=== PATIENT | female | born 1975 | race Caucasian/White ===

== ENCOUNTER 2018-08-08 08:46 | Inpatient (IN) | payer BC, MEDICAID, OTHER ==
[~2018-08-08] VITALS: Ht 152.4 cm; Wt 59.6 kg
[~2018-08-08 08:46] MED LIST: ARIP5TAB8 PO; SERT50TA12 PO
[2018-08-08] MEDS ORDERED: TEMA15CA PO (09:10)
[2018-08-08 09:25] LABS: EOSINOPHILS % (AUTO) 3.2 % (1.0-6.0); HEMATOCRIT 39.9 % (36-46); LYMPHOCYTES # (AUTO) 1.8 K/uL (1.0-4.8); LYMPHOCYTES % (AUTO) 27.4 % (22.0-44.0); MEAN CORPUSCULAR HGB CONC 32.4 G/dL (31.0-37.0); MEAN CORPUSCULAR VOLUME 86 fL (80-100); MONOCYTES # (AUTO) 0.7 K/uL (0.1-1.0); MONOCYTES % (AUTO) 10.8 % (2.0-9.0); NEUTROPHILS # (AUTO) 3.8 K/uL (1.8-7.7); NEUTROPHILS % (AUTO) 57.6 % (40.0-70.0); PLATELET COUNT (AUTO) 254 K/uL (150-450); RED BLOOD CELL COUNT(AUTO) 4.63 MIL/uL (4.00-5.20); RED CELL DISTRIBUTION WIDTH 14.3 % (11.5-14.5)
[2018-08-08 09:26] LABS: AMPHET/METH SCREEN,URINE NEGATIVE (NEGATIVE); BARBITURATE SCREEN, URINE NEGATIVE (NEGATIVE); BENZODIAZEPINES SCREEN,URINE NEGATIVE (NEGATIVE); CANNABINOID SCREEN,URINE NEGATIVE (NEGATIVE); COCAINE SCREEN,URINE NEGATIVE (NEGATIVE); METHADONE SCREEN, URINE NEGATIVE (NEGATIVE); OPIATE SCREEN,URINE NEGATIVE (NEGATIVE)
[2018-08-08 09:27] LABS: PHENCYCLIDINE SCREEN,URINE NEGATIVE (NEGATIVE)
[2018-08-08 09:34] LABS: ANION GAP 6 mmol/L (8-16); CARBON DIOXIDE 27 mmol/L (22-29); CHLORIDE 103 mmol/L (98-107); CREATININE 0.86 mg/dL (0.60-1.30); GLOMERULAR FILTR. RATE CALC > 60 mL/min (>60); GLUCOSE,RANDOM 96 mg/dL (70-110); POTASSIUM 3.8 mmol/L (3.5-5.1); SODIUM SERUM 136 mmol/L (136-145); UREA NITROGEN, BLOOD 7 mg/dL (7-18)
[2018-08-08 09:40] LABS: ALANINE AMINOTRANSFERASE 44 U/L (12-78); ALBUMIN 3.6 g/dL (3.4-5.0); ALKALINE PHOSPHATASE 82 U/L (46-116); ASPARTATE AMINOTRANSFERASE 35 U/L (15-37); BILIRUBIN,TOTAL 0.2 mg/dL (0.1-1.0); TOTAL PROTEIN, SERUM 7.3 g/dL (6.4-8.2)
[2018-08-08] MEDS ORDERED: LORazepam 2 MG TABLET PO ONE (10:30)
[2018-08-08] MEDS ORDERED: HALOPERIDOL 5 MG TABLET PO ONE (10:30)
[2018-08-08] MEDS ORDERED: HALOPERIDOL 5 MG TABLET PO PRN (11:45)
[2018-08-08] MEDS ORDERED: ZOLPIDEM TARTRATE 10 MG TABLET PO PRN (11:45)
[2018-08-08] MEDS ORDERED: LOPERAMIDE HCL 2 MG CAPSULE PO PRN (15:30)
[2018-08-08] MEDS ORDERED: MAGNESIUM HYDROXIDE SUSPENSION 30 ML UDCUP PO PRN (15:30)
[2018-08-08] MEDS ORDERED: ALBUTEROL SULFATE HFA 90 MCG/PUFF 8 GM INHALER IH PRN (15:30)
[2018-08-08] MEDS ORDERED: IBUPROFEN 400 MG TABLET PO PRN (15:30)
[2018-08-08] MEDS ORDERED: MAG HYDROX/AL HYDROX/SIMETH ES 30 ML SUSPENSION UDCUP PO PRN (15:30)
[2018-08-08] MEDS ORDERED: NICOTINE 14 MG/24 HOUR PATCH TD PRN (15:30)
[2018-08-08] MEDS ORDERED: ACETAMINOPHEN 325 MG TABLET PO PRN (15:30)
[2018-08-08] MEDS ORDERED: PETROLATUM,WHITE 28 GM JELLY TP PRN (15:30)
[2018-08-08] MEDS ORDERED: ONDANSETRON HCL 4 MG TABLET PO PRN (15:30)
[2018-08-08] MEDS ORDERED: DOCUSATE SODIUM 100 MG CAPSULE PO PRN (15:30)
[2018-08-08] MEDS ORDERED: GuaiFENesin/D-METHORPHAN [SUGAR-FREE] 200-20MG/10 ML SYRUP UDCUP PO PRN (15:30)
[2018-08-08] MEDS ORDERED: CloNIDine HCL 0.1 MG TABLET PO PRN (15:30)
[2018-08-08 16:26] VITALS: BP 123/70
[2018-08-09 00:22] VITALS: BP 109/68
[2018-08-09] MEDS: LORazepam 2 MG TABLET PO PRN ×3 (00:27→16:06)
[2018-08-09 08:07] LABS: BASOPHILS % (AUTO) 0.8 % (0.0-2.0); EOSINOPHILS % (AUTO) 2.2 % (1.0-6.0); HEMATOCRIT 42.9 % (36-46); LYMPHOCYTES # (AUTO) 2.2 K/uL (1.0-4.8); LYMPHOCYTES % (AUTO) 31.2 % (22.0-44.0); MEAN CORPUSCULAR HEMOGLOBIN 28.2 pg (26.0-34.0); MEAN CORPUSCULAR HGB CONC 32.7 G/dL (31.0-37.0); MEAN CORPUSCULAR VOLUME 86 fL (80-100); MONOCYTES # (AUTO) 0.6 K/uL (0.1-1.0); NEUTROPHILS % (AUTO) 57.8 % (40.0-70.0); PLATELET COUNT (AUTO) 264 K/uL (150-450); RED BLOOD CELL COUNT(AUTO) 4.97 MIL/uL (4.00-5.20); RED CELL DISTRIBUTION WIDTH 14.8 % (11.5-14.5)
[2018-08-09 08:15] VITALS: BP 129/74
[2018-08-09 08:34] LABS: ALANINE AMINOTRANSFERASE 36 U/L (12-78); ALBUMIN 3.3 g/dL (3.4-5.0); ALKALINE PHOSPHATASE 76 U/L (46-116); ANION GAP 9 mmol/L (8-16); ASPARTATE AMINOTRANSFERASE 30 U/L (15-37); BILIRUBIN,TOTAL 0.3 mg/dL (0.1-1.0); CALCIUM, TOTAL 9.1 mg/dL (8.8-10.5); CARBON DIOXIDE 26 mmol/L (22-29); CHLORIDE 105 mmol/L (98-107); CHOL/HDL RATIO 2.4 (3.9-5.7); CHOLESTEROL 196 mg/dL (131-200); CREATININE 0.72 mg/dL (0.60-1.30); GLOMERULAR FILTR. RATE CALC > 60 mL/min (>60); GLUCOSE,RANDOM 89 mg/dL (70-110); HDL CHOLESTEROL 82 mg/dL (40-60); LDL CHOL (CALC.) 97 mg/dL (0-130); POTASSIUM 4.2 mmol/L (3.5-5.1); SODIUM SERUM 140 mmol/L (136-145); TOTAL PROTEIN, SERUM 7.2 g/dL (6.4-8.2); TRIGLYCERIDES 84 mg/dL (15-150); UREA NITROGEN, BLOOD 7 mg/dL (7-18)
[2018-08-09] MEDS: OLANZapine 5 MG RAPDIS TABLET PO SCH ×2 (09:30→16:06)
[2018-08-09] MEDS: SERTRALINE HCL 100 MG TABLET PO SCH (09:53)
[2018-08-09 16:06] VITALS: BP 132/62
[2018-08-09] MEDS: ARIPiprazole 10 MG TABLET PO SCH (20:25)
[2018-08-10 00:04] VITALS: BP 119/67
[2018-08-10] MEDS: LORazepam 2 MG TABLET PO PRN ×4 (00:07→21:21)
[2018-08-10] MEDS: SERTRALINE HCL 100 MG TABLET PO SCH (08:08)
[2018-08-10] MEDS: OLANZapine 5 MG RAPDIS TABLET PO SCH ×2 (08:08→16:39)
[2018-08-10 08:18] LABS: APPEARANCE,URINE TURBID (CLEAR); BILIRUBIN,URINE NEGATIVE (NEGATIVE); GLUCOSE, URINE (UA) NEGATIVE (NEGATIVE); KETONES,URINE NEGATIVE (NEGATIVE); LEUKOCYTE ESTERASE ,URINE NEGATIVE (NEGATIVE); NITRATE,URINE NEGATIVE (NEGATIVE); OCCULT BLOOD,URINE NEGATIVE (NEGATIVE); PROTEIN,URINE NEGATIVE (NEGATIVE); UROBILINOGEN,URINE 0.2 mg/dL (<=1.0)
[2018-08-10 08:21] LABS: AMPHET/METH SCREEN,URINE NEGATIVE (NEGATIVE); BARBITURATE SCREEN, URINE NEGATIVE (NEGATIVE); BENZODIAZEPINES SCREEN,URINE NEGATIVE (NEGATIVE); CANNABINOID SCREEN,URINE NEGATIVE (NEGATIVE); COCAINE SCREEN,URINE NEGATIVE (NEGATIVE); METHADONE SCREEN, URINE NEGATIVE (NEGATIVE); OPIATE SCREEN,URINE NEGATIVE (NEGATIVE)
[2018-08-10 08:23] LABS: PHENCYCLIDINE SCREEN,URINE NEGATIVE (NEGATIVE)
[2018-08-10 08:32] VITALS: BP 128/61
[2018-08-10] MEDS ORDERED: SERT100T12 PO (12:09)
[2018-08-10] MEDS ORDERED: LORATADINE 10 MG TABLET PO PRN (12:15)
[2018-08-10 16:32] VITALS: BP 117/71
[2018-08-10] MEDS: ARIPiprazole 10 MG TABLET PO SCH (20:03)
[2018-08-11 01:13] VITALS: BP 111/75
[2018-08-11 08:22] VITALS: BP 117/78
[2018-08-11] MEDS: SERTRALINE HCL 100 MG TABLET PO SCH (09:06)
[2018-08-11] MEDS: OLANZapine 5 MG RAPDIS TABLET PO SCH ×2 (09:06→16:04)
[2018-08-11] MEDS: LORazepam 2 MG TABLET PO PRN ×3 (09:10→20:06)
[2018-08-11 16:11] VITALS: BP 117/67
[2018-08-11] MEDS: ARIPiprazole 10 MG TABLET PO SCH (20:06)
[2018-08-12] MEDS: LORazepam 2 MG TABLET PO PRN ×2 (00:09→09:10)
[2018-08-12 00:12] VITALS: BP 108/72
[2018-08-12] MEDS: SERTRALINE HCL 100 MG TABLET PO SCH (08:08)
[2018-08-12] MEDS: OLANZapine 5 MG RAPDIS TABLET PO SCH (08:08)
[2018-08-12 08:33] VITALS: BP 117/75
[2018-08-12] MEDS ORDERED: OLAN5TAB40 PO (09:40)
== END 2018-08-12 10:30 | disposition home or self-care (01) | DRG 750 ==
LOC: EMS 08:55 → B2S 13:48
PROVIDERS: ATTEND Psychiatry & Neurology Child & Adolescent Psychiatry
DX: F25.9 Schizoaffective disorder, unspecified (principal); R45.851 Suicidal ideations; E88.09 Other disorders of plasma-protein metabolism, not elsewhere classified; G44.209 Tension-type headache, unspecified, not intractable; F41.9 Anxiety disorder, unspecified
CPT/HCPCS: 80307; 83036; 84443; G0480

== ENCOUNTER 2019-01-26 16:43 | Emergency (ER) | payer MEDICAID ==
[~2019-01-26] VITALS: Ht 152.4 cm; Wt 70.5 kg
[~2019-01-26 16:43] MED LIST changes: +OLAN5TAB40 PO; +SERT100T12 PO; -SERT50TA12 PO
[2019-01-26] MEDS ORDERED: ARIP10TA8 PO (18:49)
[2019-01-26 18:59] LABS: HEMOGLOBIN 13.3 g/dL (12.0-16.0)
[2019-01-26 19:00] LABS: HEMATOCRIT 40.2 % (36-46); LYMPHOCYTES % (AUTO) 22.9 % (22.0-44.0); MEAN CORPUSCULAR HEMOGLOBIN 27.8 pg (26.0-34.0); MEAN CORPUSCULAR HGB CONC 33.1 G/dL (31.0-37.0); MEAN CORPUSCULAR VOLUME 84 fL (80-100); MONOCYTES # (AUTO) 0.6 K/uL (0.1-1.0); MONOCYTES % (AUTO) 6.5 % (2.0-9.0); NEUTROPHILS % (AUTO) 68.6 % (40.0-70.0); PLATELET COUNT (AUTO) 255 K/uL (150-450); RED CELL DISTRIBUTION WIDTH 14.8 % (11.5-14.5)
[2019-01-26] MEDS ORDERED: HydrOXYzine PAMOATE 50 MG CAPSULE PO ONE (19:00)
[2019-01-26 19:45] LABS: ANION GAP 9 mmol/L (8-16); CALCIUM, TOTAL 8.7 mg/dL (8.8-10.5); CARBON DIOXIDE 27 mmol/L (22-29); CHLORIDE 102 mmol/L (98-107); CREATININE 0.83 mg/dL (0.60-1.30); GLOMERULAR FILTR. RATE CALC > 60 mL/min (>60); GLUCOSE,RANDOM 100 mg/dL (70-110); POTASSIUM 3.6 mmol/L (3.5-5.1); SODIUM SERUM 138 mmol/L (136-145); UREA NITROGEN, BLOOD 5 mg/dL (7-18)
[2019-01-26 19:52] LABS: ALANINE AMINOTRANSFERASE 25 U/L (12-78); ALKALINE PHOSPHATASE 69 U/L (46-116); ASPARTATE AMINOTRANSFERASE 22 U/L (15-37); BILIRUBIN,TOTAL 0.2 mg/dL (0.1-1.0); HCG,QUANTITATIVE < 1 mIU/mL (0-6); THYROID STIMULATING HORMONE 1.39 uIU/mL (0.36-3.74); TOTAL PROTEIN, SERUM 7.6 g/dL (6.4-8.2)
[2019-01-26 20:15] VITALS: BP 112/76
== END 2019-01-26 20:40 | disposition home or self-care (01) ==
LOC: EMS 16:43
DX: F41.9 Anxiety disorder, unspecified (principal); F32.9 Major depressive disorder, single episode, unspecified; F17.210 Nicotine dependence, cigarettes, uncomplicated
CPT/HCPCS: 36415; 80053; 84443; 84702; 85025; 93005; 99284; G0480

== ENCOUNTER 2019-04-10 04:58 | Emergency (ER) | payer MEDICAID ==
[~2019-04-10] VITALS: Ht 154.9 cm; Wt 70.0 kg
[~2019-04-10 04:58] MED LIST changes: +ARIP10TA8 PO; -ARIP5TAB8 PO
[2019-04-10] MEDS ORDERED: TEMA15CA PO (05:15)
[2019-04-10 05:58] VITALS: BP 119/76
== END 2019-04-10 06:36 | disposition home or self-care (01) ==
LOC: EMS 04:58
DX: J30.9 Allergic rhinitis, unspecified (principal); F41.9 Anxiety disorder, unspecified; F32.9 Major depressive disorder, single episode, unspecified; F17.210 Nicotine dependence, cigarettes, uncomplicated

== ENCOUNTER 2019-04-17 04:34 | Emergency (ER) | payer MEDICAID ==
[~2019-04-17] VITALS: Ht 154.9 cm; Wt 68.2 kg
[~2019-04-17 04:34] MED LIST changes: +TEMA15CA PO
[2019-04-17 04:57] VITALS: BP 111/88
== END 2019-04-17 06:13 | disposition left against medical advice (07) ==
LOC: EMS 04:34
DX: T78.40XA Allergy, unspecified, initial encounter (principal); Z53.21 Procedure and treatment not carried out due to patient leaving prior to being seen by health care provider; X58.XXXA Exposure to other specified factors, initial encounter

== ENCOUNTER 2020-12-30 10:51 | Emergency (ER) | payer MEDICAID ==
[~2020-12-30] VITALS: Ht 152.4 cm; Wt 76.4 kg
[~2020-12-30 10:51] MED LIST changes: +ARIP10TA38 PO; -ARIP10TA8 PO; -OLAN5TAB40 PO; +OLAN5TAB94 PO; +SERT-162 PO; -SERT100T12 PO
[2020-12-30 11:00] VITALS: BP 122/33
[2020-12-30] MEDS ORDERED: GABAPENTIN 100 MG CAPSULE PO ONE (11:45)
[2020-12-30] MEDS ORDERED: METHOCARBAMOL 500 MG TABLET PO ONE (11:45)
[2020-12-30] MEDS ORDERED: KETOROLAC TROMETHAMINE 10 MG TABLET PO ONE (11:45)
== END 2020-12-30 12:21 | disposition home or self-care (01) ==
LOC: EMS 10:51
DX: M54.6 Pain in thoracic spine (principal)
CPT/HCPCS: 99284; Z7502; Z7610

== ENCOUNTER 2021-01-24 20:35 | Emergency (ER) | payer MEDICAID ==
[~2021-01-24] VITALS: Ht 152.4 cm; Wt 77.3 kg
[2021-01-24 20:45] VITALS: BP 133/78
[2021-01-24] MEDS ORDERED: LIDOCAINE 5% TRANSDERMAL PATCH TD ONE (21:00)
[2021-01-24] MEDS ORDERED: KETOROLAC TROMETHAMINE 30 MG/ML VIAL IM ONE (21:00)
[2021-01-24] MEDS ORDERED: CYCLOBENZAPRINE HCL 10 MG TABLET PO ONE (21:00)
[2021-01-24] MEDS ORDERED: SERT-162 PO (22:14)
[2021-01-24] MEDS ORDERED: DIVA125T32 PO (22:14)
== END 2021-01-24 21:48 | disposition home or self-care (01) ==
LOC: EMS 20:49
DX: M54.6 Pain in thoracic spine (principal); F32.9 Major depressive disorder, single episode, unspecified; F41.9 Anxiety disorder, unspecified; Z79.899 Other long term (current) drug therapy
CPT/HCPCS: 96372; 99283; J1885

== ENCOUNTER 2021-07-03 02:22 | Emergency (ER) | payer MEDICAID ==
[~2021-07-03] VITALS: Ht 152.4 cm; Wt 79.1 kg
[~2021-07-03 02:22] MED LIST changes: +DIVA125T32 PO
[2021-07-03 03:34] VITALS: BP 104/63
[2021-07-03] MEDS ORDERED: KETOROLAC TROMETHAMINE 30 MG/ML VIAL IM ONE (04:00)
== END 2021-07-03 04:41 | disposition home or self-care (01) ==
LOC: EMS 02:26
DX: G89.29 Other chronic pain (principal); M54.9 Dorsalgia, unspecified; F41.9 Anxiety disorder, unspecified; F32.9 Major depressive disorder, single episode, unspecified; M41.9 Scoliosis, unspecified
CPT/HCPCS: 96372; 99283; J1885

== ENCOUNTER 2021-11-27 04:59 | Emergency (ER) | payer MEDICAID ==
[~2021-11-27] VITALS: Ht 154.9 cm; Wt 72.0 kg
[2021-11-27 05:16] VITALS: BP 135/75
[2021-11-27] MEDS: KETOROLAC TROMETHAMINE 30 MG/ML VIAL IM ONE (10:25)
[2021-11-27 11:03] LABS: APPEARANCE,URINE HAZY (CLEAR); BILIRUBIN,URINE NEGATIVE (NEGATIVE); GLUCOSE, URINE (UA) NEGATIVE (NEGATIVE); KETONES,URINE NEGATIVE (NEGATIVE); LEUKOCYTE ESTERASE ,URINE NEGATIVE (NEGATIVE); NITRATE,URINE NEGATIVE (NEGATIVE); OCCULT BLOOD,URINE NEGATIVE (NEGATIVE); PH,URINE 6.5 (5.0-8.0); PROTEIN,URINE NEGATIVE (NEGATIVE); SPECIFIC GRAVITIY, URINE 1.014 (1.003-1.030); UROBILINOGEN,URINE <=1.0 mg/dL (<=1.0)
[2021-11-27] MEDS ORDERED: CYCL-448 PO (12:45)
== END 2021-11-27 12:58 | disposition home or self-care (01) ==
LOC: EMS 05:00
DX: M54.9 Dorsalgia, unspecified (principal); F32.A Depression, unspecified; F41.9 Anxiety disorder, unspecified; F22 Delusional disorders; F25.9 Schizoaffective disorder, unspecified
CPT/HCPCS: 99284; 81003; 72072; 81025; 96372; J1885

== ENCOUNTER 2022-02-10 04:53 | Emergency (ER) | payer MEDICAID ==
[~2022-02-10] VITALS: Ht 152.4 cm; Wt 68.2 kg
[~2022-02-10 04:53] MED LIST changes: +CYCL-448 PO
[2022-02-10 05:00] VITALS: BP 115/71
[2022-02-10] MEDS ORDERED: KETOROLAC TROMETHAMINE 30 MG/ML VIAL IM ONE (05:15)
== END 2022-02-10 05:55 | disposition home or self-care (01) ==
LOC: EMS 04:54
DX: K08.89 Other specified disorders of teeth and supporting structures (principal); F41.9 Anxiety disorder, unspecified; F32.A Depression, unspecified
CPT/HCPCS: 99283; 96372; J1885

== ENCOUNTER 2022-02-12 03:16 | Emergency (ER) | payer MEDICAID ==
[~2022-02-12] VITALS: Ht 152.4 cm; Wt 68.2 kg
[~2022-02-12 03:16] MED LIST changes: -CYCL-448 PO
[2022-02-12 03:17] VITALS: BP 126/83
[2022-02-12] MEDS ORDERED: HYDR-4723 PO (04:15)
[2022-02-12] MEDS ORDERED: HYDROCODONE/ACETAMINOPHEN 5-325 MG TABLET PO ONE (04:15)
== END 2022-02-12 05:01 | disposition home or self-care (01) ==
LOC: EMS 03:17
DX: K08.89 Other specified disorders of teeth and supporting structures (principal); F41.9 Anxiety disorder, unspecified; F32.A Depression, unspecified
CPT/HCPCS: 99283

== ENCOUNTER 2022-03-18 23:59 | Emergency (ER) | payer MEDICAID ==
[~2022-03-18] VITALS: Ht 152.4 cm; Wt 63.6 kg
[~2022-03-18 23:59] MED LIST changes: +HYDR-4723 PO
[2022-03-19 00:20] VITALS: BP 119/71
[2022-03-19] MEDS ORDERED: PENI500T2 PO (00:47)
[2022-03-20] MEDS ORDERED: AMOX1TAB16 PO (09:23)
[2022-03-20] MEDS ORDERED: HYDR-4723 PO (09:23)
== END 2022-03-19 00:57 | disposition home or self-care (01) ==
LOC: EMS 03-19
DX: K08.89 Other specified disorders of teeth and supporting structures (principal); F41.9 Anxiety disorder, unspecified; F32.A Depression, unspecified
CPT/HCPCS: 99283; Z7502

== ENCOUNTER 2022-03-20 08:09 | Emergency (ER) | payer MEDICAID ==
[~2022-03-20] VITALS: Ht 152.4 cm; Wt 63.6 kg
[~2022-03-20 08:09] MED LIST changes: -OLAN5TAB94 PO; +PENI500T2 PO
[2022-03-20] MEDS ORDERED: HYDROCODONE/ACETAMINOPHEN 5-325 MG TABLET PO ONE (08:45)
[2022-03-20] MEDS ORDERED: HYDR-4723 PO (09:23)
[2022-03-20] MEDS ORDERED: AMOX1TAB16 PO (09:23)
[2022-03-20 09:25] VITALS: BP 125/82
== END 2022-03-20 09:40 | disposition home or self-care (01) ==
LOC: EMS 08:13
DX: K04.7 Periapical abscess without sinus (principal); K12.2 Cellulitis and abscess of mouth; F41.9 Anxiety disorder, unspecified; F32.A Depression, unspecified; Z98.890 Other specified postprocedural states
CPT/HCPCS: 99283

== ENCOUNTER 2022-03-30 03:27 | Emergency (ER) | payer MEDICAID ==
[~2022-03-30] VITALS: Ht 152.4 cm; Wt 72.7 kg
[~2022-03-30 03:27] MED LIST changes: +AMOX1TAB16 PO
[2022-03-30 03:39] VITALS: BP 142/95
== END 2022-03-30 04:18 | disposition home or self-care (01) ==
LOC: EMS 03:28
DX: K20.80 Other esophagitis without bleeding (principal); F41.9 Anxiety disorder, unspecified; F32.A Depression, unspecified; F17.210 Nicotine dependence, cigarettes, uncomplicated; F25.8 Other schizoaffective disorders
CPT/HCPCS: 99281; Z7502

== ENCOUNTER 2024-09-06 00:29 | Emergency (ER) | payer OTHER ==
[~2024-09-06] VITALS: Ht 152.4 cm; Wt 65.9 kg
[~2024-09-06 00:29] MED LIST changes: -AMOX1TAB16 PO; -ARIP10TA38 PO; +BACL10TA PO; +BUPR-50 PO; +DIVA-112 PO; -DIVA125T32 PO; -HYDR-4723 PO; +LURA40TA2 PO; -PENI500T2 PO; -SERT-162 PO; -TEMA15CA PO
[2024-09-06 01:42] VITALS: TEMP 98.1
[2024-09-06] MEDS: LIDOCAINE 1% 10 ML VIAL IM ONE (01:51)
[2024-09-06] MEDS ORDERED: SULF-261 PO (02:30)
[2024-09-06] MEDS: HYDROCODONE/ACETAMINOPHEN 5-325 MG TABLET PO ONE (03:06)
[2024-09-06] MEDS: LIDOCAINE/PF 1% 2 ML VIAL IM ONE (03:07)
[2024-09-06] MEDS: CefTRIAXone SODIUM 1 GM/VIAL IM ONE (03:07)
[2024-09-06] MEDS: SULFAMETHOX/TRIMETH DS 800-160 MG/TABLET PO ONE (03:08)
[2024-09-06 03:30] VITALS: BP 118/72; PULSE 71; RESP 16; O2SAT 98
== END 2024-09-06 03:42 | disposition home or self-care (01) ==
LOC: EMS 00:30
DX: L02.213 Cutaneous abscess of chest wall (principal); L03.313 Cellulitis of chest wall; Z79.899 Other long term (current) drug therapy; X58.XXXA Exposure to other specified factors, initial encounter; Y93.89 Activity, other specified; Y92.89 Other specified places as the place of occurrence of the external cause; Y99.8 Other external cause status
CPT/HCPCS: 99284; 10061; 87205; 87070; 96372; J0696; J3490 ×2